=== PATIENT | female | born 1990 | race Two or more races ===

== ENCOUNTER 2020-07-04 12:55 | Emergency (ER) | payer OTHER ==
[~2020-07-04] VITALS: Ht 177.8 cm; Wt 75.7 kg
[~2020-07-04 12:55] MED LIST: AMOX1TAB12 PO; PROBIOTIC1 EAC4 PO
== END 2020-07-04 17:34 | disposition home or self-care (01) ==
LOC: ER 12:55
DX: B34.9 Viral infection, unspecified (principal); Z20.828 Contact with and (suspected) exposure to other viral communicable diseases